=== PATIENT | female | born 1960 | race Caucasian/White ===

== ENCOUNTER 2025-06-27 14:19 | Emergency (ER) | payer OTHER, SELFPAY ==
[2025-06-27 14:25] VITALS: BP 145/82
[2025-06-27 14:28] VITALS: BP 145/82
--- NOTE | 2025-06-27 15:20 | ED.GENMED ---
History of Present Illness
General
Chief Complaint: Musculo-Skeletal Complaint
Source: patient
Exam Limitations: none
Time Seen by Provider: 06/27/25 15:05
Nursing documentation reviewed up to this point in time: agreed with
History of Present Illness
History of Present Illness:
Patient presents to ED for evaluation from urgent care center after x-ray revealed possible left shoulder dislocation. Patient received Norflex IM at urgent care center, with minimal relief in symptoms. Patient also took Tylenol at home after
injury. Patient is left-handed. Denies any other injuries. Patient states that she was reaching up with her left arm to hang something on the wall, when she felt intense pain in her left shoulder. Denies previous history of similar symptoms.
Past History
Past History
ED Past Medical History: Hypothyroidism
ED Past Surgical History: Other (Gasric bypass)
Social History
Tobacco: Non-smoker
Review of Systems
Review of Systems
Allergies reviewed?: Yes
All Other Systems: ROS reviewed and negative except as documented in HPI and ROS
Constitutional: Reports no symptoms
ABD/GI: Reports no symptoms
Musculoskeletal: Reports other (Shoulder pain); Denies neck pain
Skin: Reports no symptoms
Neurological: Reports no symptoms; Denies weakness or numbness
Phy Exam
Physical Exam
Physical Exam:
Physical Exam
General: mild painful distress, not acutely ill. afebrile
Head: nc/at. eomi
Neck: supple. normal range of motion
Neuro: alert and oriented x 3. no focal neurological deficits
Skin: no rash
Psychiatric: well kept. interactive and cooperative
Extremities: diffuse left shoulder tenderness to palpation with minimal soft tissue defect
Course
Orders/Labs/Results
Orders:
Orders
06/27/25 15:09
Ibuprofen [Motrin] 400 mg PO NOW STA
06/27/25 15:10
Oxycodone [Roxicodone] 5 mg PO NOW STA
Vital Signs
Initial and Last Documented VS:
Initial Vital Signs
Temp Pulse Resp BP Pulse Ox
97.8 F 87 18 145/82 100
06/27/25 14:25 06/27/25 14:25 06/27/25 14:25 06/27/25 14:25 06/27/25 14:25
Last Documented Vital Signs
Temp Pulse Resp BP Pulse Ox
98.2 F 70 16 123/68 100
06/27/25 14:28 06/27/25 16:09 06/27/25 16:09 06/27/25 16:09 06/27/25 16:09
MDM/Problems Addressed
MDM/Problems Addressed:
Outpatient x-ray reviewed by myself and radiology () -likely subluxation. Patient otherwise remains neurovascular intact, where wearing arm sling provided by urgent care center.
Patient will be discharged home with recommendation to follow-up with her work comp physician, for further eval and treatment.
*Pulse Oximetry
SaO2: 98
Oxygen Mode of Delivery: Room air
Patient hypoxic: no
*Critical Care Note
Total Time (30-74mins, 75-104mins- exclusive of procedures): Not Applicable
ED Attending Note
-
Portions of this chart may have been created with voice recognition software.� Occasional wrong word or��sound alike� substitutions may have occurred due to the inherent limitations of voice recognition software.
Discharge Plan
Departure
Patient Disposition: Home (Routine Discharge)
Date of Disposition: 06/27/25
Time of Disposition: 16:39
Patient with high blood pressure during this ER visit?: Yes
Condition: Good
Discharge Problem:
Shoulder subluxation
Instructions: How to Use a Shoulder Sling, Shoulder pain - ED (DC)
Prescriptions:
New
oxycodone 5 mg tablet
5 mg PO Q8H PRN (Reason: Pain) Qty: 10 0RF
No Action
acetaminophen [Tylenol Extra Strength] 500 MG tablet
1,000 mg PO Q6HPRN PRN (Reason: pain)
buspirone 7.5 MG tablet
7.5 mg PO BID
hydrochlorothiazide 25 MG tablet
25 mg PO DAILY
loratadine [Allergy Relief (loratadine)] 10 MG tablet
10 mg PO DAILY
rosuvastatin 10 MG tablet
10 mg PO DAILY
duloxetine 60 MG capsule,delayed release(DR/EC)
60 mg PO Q48H
levothyroxine 200 MCG capsule
1,400 mcg PO HS
Referrals:
Sunny Benites MD [Family Provider, Family Practice]
Shalom Germain MD [Active, Orthopedics]
Stand Alone Forms: Return to Work
Activity Restrictions/Additional Instructions:
As discussed, please continue to use provided arm sling and follow-up with your work comp physician for further evaluation and treatment. Your prescription has been sent electronically to [facility] pharmacy in [place].
Interventions
Interventions:
*Risk Screen - Suicide Last Done: 06/27/25 15:25
*General Assessment Last Done: 06/27/25 15:25
*Neglect/Abuse Screening Last Done: 06/27/25 15:25
*ED- Fall Risk Assessment Last Done: 06/27/25 15:25
*ED COVID-19 Vaccine History Last Done: 06/27/25 15:25
*Nursing Disposition Last Done: 06/27/25 17:22
ED-Musculoskeletal Assessment Last Done: 06/27/25 15:25
Discharge Date and Time
Discharge Date/Time: 06/27/25 17:22
Print Language: KOREAN
[2025-06-27] MEDS: ROXICODONE 5 MG PO (15:22)
[2025-06-27] MEDS: MOTRIN 400 MG PO (15:22)
[2025-06-27 15:25] VITALS: BMI 29.4
[2025-06-27 16:09] VITALS: BP 123/68
== END 2025-06-27 17:22 | disposition home or self-care (01) ==
LOC: EMR 14:19
PROVIDERS: EMERGENCY PHYSICIAN Emergency Medicine; FAMILY PHYSICIAN Family Medicine
DX: S43.002A Unspecified subluxation of left shoulder joint, initial encounter (principal); X50.1XXA Overexertion from prolonged static or awkward postures, initial encounter; Y99.0 Civilian activity done for income or pay; E03.9 Hypothyroidism, unspecified
CPT/HCPCS: 99283